=== PATIENT | male | born 1945 | race Caucasian/White ===

== ENCOUNTER 2018-11-11 11:49 | Day surgery (SDC) | payer MEDICARE ==
[2018-11-11] MEDS ORDERED: LIDOCAINE 2% MDV (20MG/ML) 20ML VIAL IV ONE (11:50)
[2018-11-11] MEDS ORDERED: PROPOFOL 10 MG/ML VIAL IV ONE (11:50)
--- NOTE | 2018-11-16 12:30 | Operative Note ---
DATE OF SURGERY: 11/11/2018 SURGEON: Mulu Napoles MD OPERATION: COLONOSCOPY. INDICATIONS: This is a 74-year-old male with average risk for colorectal cancer who presented for screening colonoscopy. POSTOPERATIVE DIAGNOSIS: Poor bowel preparation and cannot advance the colonoscope beyond the descending colon. ANESTHESIA: Sedation is per Anesthesia. Pulse oximetry was monitored throughout the procedure to maintain O2 saturation of 90% or greater. Supplemental oxygen was administered via nasal cannula. Cardiac and vital signs were monitored throughout the duration of the procedure, and they were stable. The procedure of colonoscopy and risks and alternatives of the procedure, including the risk of bleeding and perforation, among others, were explained to the patient who voiced understanding and agreed to have the procedure done. Physical examination was performed, and the patient was found stable for sedation. PROCEDURE: The patient was placed in the left lateral position. Sedation was initiated. A digital rectal exam was performed and showed some mild external hemorrhoids with no palpable rectal masses. An Olympus PCF-180AL colonoscope was then inserted into the rectum and advanced into the descending colon with moderate difficulty. The difficulty was due to poor bowel preparation with solid stool debris in the descending colon that precluded further advancement of the colonoscope. The colonic mucosa was carefully examined upon introduction of the colonoscope. The mucosa could not be clearly visualized and attempts to irrigate the colonic mucosa were unsuccessful. The colonoscope was then withdrawn and the procedure was terminated because of the poor bowel preparation. The patient tolerated the procedure well without any immediate complications. The patient remained with stable vital signs and was transferred to the recovery room. RECOMMENDATIONS: 1. The patient should continue on a high-fiber diet. 2. The patient is to have a repeat colonoscopy for repeat screening within the next 1 year. Thank you for allowing me to participate in the care of your patient. CC: DO GINGER Nino
== END 2018-11-11 13:10 | disposition home or self-care (01) ==
LOC: HOP 11:49
PROVIDERS: ATTEND Internal Medicine Gastroenterology
DX: Z12.11 Encounter for screening for malignant neoplasm of colon (principal); Z53.09 Procedure and treatment not carried out because of other contraindication; I10 Essential (primary) hypertension; E11.9 Type 2 diabetes mellitus without complications; E78.00 Pure hypercholesterolemia, unspecified; M19.90 Unspecified osteoarthritis, unspecified site
CPT/HCPCS: 00812; G0121

== ENCOUNTER 2019-02-24 10:18 | Day surgery (SDC) | payer MEDICARE ==
[2019-02-24] MEDS ORDERED: PROPOFOL 10 MG/ML VIAL IV ONE (10:19)
[2019-02-24] MEDS ORDERED: LIDOCAINE 2% MDV (20MG/ML) 20ML VIAL IV ONE (10:19)
--- NOTE | 2019-02-28 08:50 | Operative Note ---
DATE OF SURGERY: 02/24/2019 SURGEON: Mulu Napoles MD OPERATION: COLONOSCOPY. INDICATIONS: This is a 74-year-old male with average risk for colorectal cancer who presented for repeat screening colonoscopy because a colonoscopy done about 2 months ago was incomplete because of very poor bowel preparation. POSTOPERATIVE DIAGNOSES: 1. Suboptimal bowel preparation but enough to exclude any significant lesions. 2. Grade 1 internal hemorrhoids. ANESTHESIA: Sedation is per Anesthesia. Pulse oximetry was monitored throughout the procedure to maintain O2 saturation of 90% or greater. Supplemental oxygen was administered via nasal cannula. Cardiac and vital signs were monitored throughout the duration of the procedure, and they were stable. The procedure of colonoscopy and risks and alternatives of the procedure, including the risk of bleeding and perforation, among others, were explained to the patient who voiced understanding and agreed to have the procedure done. Physical examination was performed, and the patient was found stable for sedation. PROCEDURE: The patient was placed in the left lateral position. Sedation was initiated. A digital rectal exam was performed and showed some mild external hemorrhoids with no palpable rectal masses. An Olympus PCF-180AL colonoscope was then inserted into the rectum under direct visualization. It was advanced to the cecum without difficulty. The ileocecal valve and appendiceal orifice were identified and photographed. The colonic mucosa was carefully examined upon introduction of the colonoscope. There were no lesions noted. Upon withdrawal of the colonoscope, copious irrigation was performed and the colonic mucosa was appreciated with no significant lesions noted. However, cannot rule out any small lesions. The colonoscope was then withdrawn into the rectum and retroflexion was performed. There were no other lesions. Retroflexion revealed mild small internal hemorrhoids. The colonoscope was then withdrawn and the procedure was terminated. The patient tolerated the procedure well without any immediate complications. The patient remained with stable vital signs and was transferred to the recovery room. RECOMMENDATIONS: 1. The patient is to continue on a high-fiber diet. 2. The patient is to have a repeat colonoscopy in 5 years. Thank you for allowing me to participate in the care of your patient. CC: DO GINGER Nino
== END 2019-02-24 12:15 | disposition home or self-care (01) ==
LOC: HOP 10:18
PROVIDERS: ATTEND Internal Medicine Gastroenterology
DX: Z12.11 Encounter for screening for malignant neoplasm of colon (principal); I10 Essential (primary) hypertension; E78.00 Pure hypercholesterolemia, unspecified; E11.9 Type 2 diabetes mellitus without complications
CPT/HCPCS: 00812; G0121